=== PATIENT | female | born 1965 | race Caucasian/White ===

== ENCOUNTER 2016-12-18 15:39 | Emergency (ER) | payer BC ==
[2016-12-18 15:52] VITALS: BP 116/88; TEMP 98.1
--- NOTE | 2016-12-18 17:01 | EDPHY ---
H & P Time Seen by Provider: 12/18/16 16:41 HPI/ROS: HPI: 51-year-old female presents to emergency department with chief concern right medial knee injury that occurred at 2 p.m. today when she was skiing at [place], and twisted her knee, resulting in a popping/tearing sensation with pain of the medial aspect of the knee. When she stands up, "my knee is like jello." Denies other injury time of incident. Did not fall, did not strike her head. No neck or back pain. Denies right hip, right leg, right ankle or foot pain. No weakness, numbness, or tingling of the right lower extremity. Visiting from [place]. Will drive back on Wednesday. She has with her . Scheduled an appointment with orthopedist in [place] on Wednesday. ROS:10 point review of systems is negative other than as stated in HPI Social History: , lives in [place] Smoking Status: Never smoked Physical Exam: Vital signs stable, reviewed by me General: Awake, alert, calm, cooperative. No acute distress. Head: Normalocephalic. Atraumatic. EENT: PERRLA. EOMI. Neck: Supple, nontender. No midline tenderness, full ROM. Respiratory: Breathing unlabored. CV: Chest nontender, atraumatic. Distal pulses 2+. Brisk cap refill all extremities. GI: Deferred Neuro: Alert. Oriented x 3. Sensation intact all extremities. Skin: Skin warm, dry, intact. No ecchymosis, abrasions, or lacerations. Extremities: No discomfort to palpation of the right hip, leg, ankle or foot. Full ROM. Medial swelling of the right knee. Tenderness to palpation of the medial aspect of the knee. Decreased flexion, full extension. Positive valgus stress. Negative Dara. Negative AP drawer. Negative ballotment. Constitutional: Initial Vital Signs Temperature (C) 36.7 C 12/18/16 15:39 Heart Rate 81 12/18/16 15:39 Respiratory Rate 18 12/18/16 15:39 Blood Pressure 116/88 H 12/18/16 15:39 O2 Sat (%) 94 12/18/16 15:39 O2 Delivery Mode Room Air Allergies/Adverse Reactions: amoxicillin Allergy (Verified 12/18/16 15:49) Home Medications: Medication Instructions Recorded Hydrocodone/APAP 325 [[place] 1 - 2 tab PO Q6H PRN #14 tab 12/18/16 5/325 (*)] Synthroid 12/18/16 Viberzi 12/18/16 Medical Decision Making - Diagnostics Imaging: Right Knee , 5 views, including a sunrise view History: Pain post trauma. Ski accident today. Findings: There is a moderate knee joint effusion. No fracture, malalignment or dislocation is identified. The patella is normally located and intact. Impression: Joint effusion. Dictated By: Neo Boudreaux MD ED Course/Re-evaluation: X-ray shows effusion of the right knee. Patient placed in a knee immobilizer. Neurovascular status intact after application. Instructed in use of crutches. Discharged with her x-ray to take to orthopedist in [place]. Counseled in use of ibuprofen and [place]. Answered questions. Differential Diagnosis: Differential diagnosis includes but is not limited to sprain/strain, mcl tear, medial meniscal tear Departure - Departure Disposition: Home, Routine, Self-Care Clinical Impression: acute medial knee injury Condition: Good Instructions: Knee Sprain (ED), Knee Immobilizer (ED) Additional Instructions: Plan: Follow up with orthopedist in [place] on Wednesday as planned for medial knee injury: Mcl tear versus meniscal tear You may use 600 mg of ibuprofen every 6 hours for fever, inflammation, or pain. Always take ibuprofen with food and stay well hydrated while taking. Do not exceed the maximum allowable dose in a 24 hour period which is 2400 mg. For more severe pain, 1-2 [place] every 6 hours as needed--Never drink or drive while taking this medication. This medication impairs decision making capacity so do not work or sign important documents while taking. This medication its constipating so drink plenty of fluids and consider an [id number] stool softener such as docusate sodium (Colace) while taking this medication. This medication has addictive properties. You should use the least amount for the shortest amount of time. [facility] do not refill narcotic pain medication prescriptions. This is a hospital policy. You will need to follow up as indicated for recheck for further narcotic refills. Wear knee brace while up and about Use crutches for nonweightbearing Duitk-vr-sryiro exercises for foot and ankle while traveling in the car Go to emergency department if he develops significant swelling or pain of the right calf or leg Referrals: ELAINE REYES [Other] - As per Instructions Prescriptions: Hydrocodone/APAP 5/325 [[place] 5/325 (*)] 1 - 2 tab PO Q6H PRN #14 tab PRN Reason: severe pain
[2016-12-18] MEDS ORDERED: IBUPROFEN 600 MG TAB PO ONE (17:04)
[2016-12-18 17:41] VITALS: PULSE 73; RESP 15; O2SAT 93
== END 2016-12-18 17:41 | disposition home or self-care (01) ==
DX: S89.91XA Unspecified injury of right lower leg, initial encounter (principal); X58.XXXA Exposure to other specified factors, initial encounter; Y93.89 Activity, other specified
CPT/HCPCS: L1830